=== PATIENT | female | born 1995 | race African-American/Black ===

== ENCOUNTER 2017-12-28 15:12 | Emergency (ER) | payer SELFPAY ==
[2017-12-28 15:20] VITALS: TEMP 98.7; BMI 24.1
[2017-12-28] MEDS ORDERED: ACETAMINOPHEN INJECTION 100 ML IVPB ONE (15:27)
[2017-12-28] MEDS ORDERED: ACETAMINOPHEN 1000 MG/100 ML VIAL (NON FORMULARY) IVPB ONE (15:49)
[2017-12-28 16:04] LABS: HCG,QUALITATIVE URINE NEGATIVE
[2017-12-28 16:12] LABS: BASO % 0.9 % (0-2.0); EOS % 2.5 % (0-4.5); HEMOGLOBIN 13.4 GM/dL (10.7-15.3); LYMPH % 40.3 % (8-40); MCHC 32.8 g/dl (32.0-36.0); MEAN CELL VOLUME 79.5 fl (80-96); MEAN PLT VOLUME 9.7 fl (7.5-11.1); NEUT % 47.3 % (42.8-82.8); RBC 5.16 M/mm3 (3.60-5.2); RDW 13.7 % (11.6-15.6); WHITE BLOOD COUNT 5.2 K/mm3 (4.0-10.0)
[2017-12-28 16:26] LABS: ALBUMIN 4.1 g/dl (3.4-5.0); ANION GAP 7 (8-16); CALCIUM 9.4 mg/dL (8.5-10.1); CHLORIDE 107 mmol/L (98-107); CO2 25 mmol/L (21-32); GLUCOSE,RANDOM 89 mg/dL (74-106); POTASSIUM 3.7 mmol/L (3.5-5.1); SGOT/AST 12 U/L (15-37); SODIUM 139 mmol/L (136-145)
--- NOTE | 2017-12-28 16:37 | PDOC ---
History of Present Illness - General Chief Complaint: Pain, Acute Stated Complaint: ABD PAIN - History of Present Illness Initial Comments: 12/28/17 16:29 22 year old female with no significant pmh presents for 4 hour hx of RLQ abdominal pain. She works at a long-[employer] and reports eating a meal prepared by the long-term around 12:00pm today. She states that she began having the abdominal pain directly after, it was severe and she went to have a bowel movement, after which she continued to have "crampy" pain in the RLQ before coming to the emergency room. She reports having this pain before that came and went spontaneously without any intervention. Reports having a copper IUD placed 2 years ago. Had 1 previous several years ago resulting in 1 . Denies chest pain, SOB, nausea, vomiting, fevers, chills, diarrhea, dysuria. 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 Smoke: none Drink: socially Surgeries: none Allergies: none Past History - Past Medical History Allergies/Adverse Reactions: Allergies Allergy/AdvReac Type Severity Reaction Status Date / Time No Known Allergies Allergy Verified 12/28/17 15:16 Home Medications: Ambulatory Orders NK [No Known Home Medication] 12/28/17 COPD: No - Suicide/Smoking/Psychosocial Hx Smoking History: Never smoked Have you smoked in the past 12 months: No Information on smoking cessation initiated: No Hx Alcohol Use: No Drug/Substance Use Hx: Yes Substance Use Type: Marijuana Review of Systems - Review of Systems Able to Perform ROS?: Yes Is the patient limited Kazakh proficient: No Constitutional: No: Chills, Fever Respiratory: No: Cough, Shortness of Breath Cardiac (ROS): No: Chest Pain ABD/GI: No: Diarrhea, Nausea, Vomiting : No: Dysuria *Physical Exam - Vital Signs Last Vital Signs Temp Pulse Resp BP Pulse Ox 98.7 F 80 22 134/82 100 12/28/17 15:18 12/28/17 15:18 12/28/17 15:18 12/28/17 15:18 12/28/17 15:18 - Physical Exam Comments: 12/28/17 16:42 GENERAL: A&Ox3, no acute distress EYES: PERRLA, EOMI ENT: Moist mucus membranes NECK: No JVD LUNGS: CTA, no wheezes HEART: RRR, no murmurs ABDOMEN: Soft, mildly tender to palpation in RLQ, BS present MUSCULOSKELETAL: No CVA Tenderness EXTREMITIES: 2+ pulses, no edema. NEUROLOGICAL: Cranial nerves II-XII intact. ED Treatment Course - LABORATORY CBC & Chemistry Diagram: 12/28/17 15:50 12/28/17 15:50 - ADDITIONAL ORDERS Additional order review: Laboratory Results 12/28/17 15:48 Urine HCG, Qual Negative 12/28/17 15:50 RBC 5.16 MCV 79.5 L MCHC 32.8 RDW 13.7 MPV 9.7 Neutrophils % 47.3 Lymphocytes % 40.3 H Monocytes % 9.0 Eosinophils % 2.5 Basophils % 0.9 - Medications Given in the ED: ED Medications Discontinued Medications Generic Name Dose Route Start Last Admin Trade Name Quinn PRN Reason Stop Dose Admin Acetaminophen 1,000 mg 12/28/17 15:49 12/28/17 15:49 Ofirmev Injection - IVPB 12/28/17 15:50 1,000 mg NOW ONE Administration Medical Decision Making - Medical Decision Making 12/28/17 16:43 22 year old female with no past medical history presenting with RLQ abdominal pain Differential includes ovarian torsion, acute appendicitis, toxin-induced gastroenteritis -CBC -CMP -UA -Upreg -transvaginal ultrasound 12/28/17 18:47 -patient re-evaluated, feels better with only mild cramps -labs wnl -transvaginal u/s negative for torsion or fluid collection -upreg negative *DC/Admit/Observation/Transfer Diagnosis at time of Disposition: Abdominal pain - Discharge Dispostion Disposition: HOME Condition at time of disposition: Stable Decision to Admit order: No - Referrals - Patient Instructions Additional Instructions: You were seen in the hospital for abdominal pain. Your labs were within normal limits. Your ultrasound did not reveal ovarian torsion and was otherwise normal. Please follow with your documentation clerk within 1 week of discharge If you experience increased abdominal pain, chest pain, fevers, chills, shortness of breath, please return to the emergency room immediately - Post Discharge Activity
[2017-12-28 16:55] LABS: ALK PHOS 81 U/L (45-117); BILIRUBIN,TOTAL 0.5 mg/dL (0.2-1.0); BLOOD UREA NITROGEN 12 mg/dL (7-18); TOT PROT 7.9 g/dl (6.4-8.2)
[2017-12-28 17:13] LABS: SGPT/ALT 23 U/L (12-78)
[2017-12-28 17:32] LABS: PLATELET COUNT 257 K/MM3 (134-434); PLATELET ESTIMATE ADEQUATE
[2017-12-28 18:25] LABS: URINE APPEARANCE SLCLOUDY; URINE BILIRUBIN NEGATIVE (<2.0 mg/dL); URINE BLOOD NEGATIVE (NEGATIVE); URINE COLOR STRAW; URINE GLUCOSE (UA) NEGATIVE (NEGATIVE); URINE KETONE NEGATIVE (NEGATIVE); URINE LEUK ESTERASE NEGATIVE (NEGATIVE); URINE NITRITE NEGATIVE (NEGATIVE); URINE PROTEIN NEGATIVE (NEGATIVE); URINE UROBILINOGEN NEGATIVE mg/dL (0.2-1.0)
--- NOTE | 2017-12-28 19:00 | PDOC ---
Attending Attestation - HPI HPI: The patient is a 22 year old female, with no significant past medical history, who presents to the emergency department with, 4 hours of intermittent suprapubic pain. As per patient, she works at a [employer] where she had a meal prior to the onset of her symptoms. She describes her pain as crampy and usually occurs mid-menstrual cycle. She denies recent fevers, chills, headache or dizziness. She denies recent nausea, vomit, diarrhea or constipation. She denies recent dysuria, frequency, urgency or hematuria. She denies recent chest pain or shortness of breath. Allergies: NKA Past surgical history: None reported. Social history: Social Drinker. Nonsmoker. Denies recreational drug use. - Physicial Exam PE: 12/28/17 19:06 GENERAL: Well-appearing, well-nourished. No apparent distress. HEENT: Normocephalic, atraumatic. PERRL, EOM intact. CARDIOVASCULAR: Normal S1, S2. Regular rate and rhythm. PULMONARY: Clear to auscultation bilaterally. ABDOMEN: Soft, non-distended, non-tender. : Right suprapubic adnexal tenderness. EXTREMITIES: Normal ROM in all four extremities. No gross deformities. SKIN: Warm, dry. No rash NEUROLOGICAL: No focal neurological deficits. <Cyndi Espana - Last Filed: 12/28/17 19:06> - Resident Resident Name: Renzo Almaraz - ED Attending Attestation I have performed the following: I have examined & evaluated the patient, The case was reviewed & discussed with the resident, I agree w/resident's findings & plan, Exceptions are as noted - HPI HPI: 12/28/17 18:59 22 YO FEMALE P/W RT PELVIS PAIN that occurs intermittently usually mid cycle - Medical Decision Making 12/28/17 19:00 neg preg test neg UA pelvic US no torsion,no ruptured cysts cbc normal ,no anemia chemistries unremarkable IMP pelvic pain/chronic plan f/u w dental services director 12/28/17 22:59 pt felt much better and was discharged home <Germaine Foster - Last Filed: 12/28/17 23:00> Attestations - Attestations 12/28/17 19:07 Documentation prepared by Cyndi Espana, acting as biomedical equipment tech for Germaine Foster MD. <Cyndi Espana - Last Filed: 12/28/17 19:06>
[2017-12-28 19:10] VITALS: BP 97/62; PULSE 65
== END 2017-12-28 19:13 | disposition home or self-care (01) ==
LOC: JER 15:12
DX: R10.9 Unspecified abdominal pain (principal)
CPT/HCPCS: 36415; 76830-TC; 80053; 81003; 84703; 85025; 86850; 86900; 86901; 87086; 99283-25; J0131